=== PATIENT | male | born 1940 | race Caucasian/White ===

== ENCOUNTER 2017-04-28 17:37 | Emergency (ER) | payer OTHER ==
[2017-04-28 20:48] LABS: BASOPHIL % 0.3 % (0-2); PLATELET COUNT 365 x10^3mcL (130-400); RED CELL DISTRIBUTION WIDTH 12.9 % (11.5-14.5)
[2017-04-28 20:54] LABS: UA SPECIFIC GRAVITY >=1.030 (1.005-1.035); microscopic required? YES; urine erythrocyte 1+ (NEGATIVE)
[2017-04-28 21:18] LABS: CALCIUM 9.3 mg/dL (8.5-10.1); CHLORIDE SERUM 104 mmol/L (98-107); CREATININE SERUM 1.1 mg/dL (0.7-1.3); GLUCOSE SERUM 104 mg/dL (74-106); POTASSIUM SERUM 3.6 mmol/L (3.5-5.1); SODIUM SERUM 137 mmol/L (136-145)
[2017-04-28 21:21] LABS: ALBUMIN 3.4 g/dL (3.4-5.0); ALKALINE PHOSPHATASE 84 U/L (46-116); ALT/SGPT 104 U/L (16-63); AMYLASE 77 U/L (25-115); AST/SGOT 61 U/L (15-37); BILIRUBIN TOTAL 0.28 mg/dL (0.20-1.00); HDL CHOLESTEROL 37 mg/dL (40-60); LIPASE 215 IU/L (73-393); T4(THYROXINE) 8.9 ug/dL (4.7-13.3); TOTAL PROTEIN, SERUM 7.8 g/dL (6.4-8.2)
[2017-04-28 21:22] LABS: CHOLESTEROL 134 mg/dL (<200)
[2017-04-28 22:35] VITALS: BP 128/79
[2017-04-28 22:58] LABS: AMPHETAMINE QUAL UR NONE DETECTED (NEG <=1000)
== END 2017-04-28 22:35 | disposition home or self-care (01) ==
LOC: ED 17:37
PROVIDERS: Emergency Medicine
DX: F41.9 Anxiety disorder, unspecified (principal); I10 Essential (primary) hypertension
CPT/HCPCS: 36415; 83880; G0480

== ENCOUNTER 2019-01-27 17:55 | Emergency (ER) | payer OTHER ==
[~2019-01-27] VITALS: Ht 170.2 cm; Wt 88.6 kg
[2019-01-27 18:21] VITALS: Ht 170.2 cm; Wt 88.6 kg
[2019-01-27 19:22] VITALS: BP 146/97
== END 2019-01-27 19:22 | disposition home or self-care (01) ==
LOC: ED 17:55
DX: S81.852A Open bite, left lower leg, initial encounter (principal); I10 Essential (primary) hypertension; W54.0XXA Bitten by dog, initial encounter; Y93.89 Activity, other specified; Y92.89 Other specified places as the place of occurrence of the external cause; Y99.8 Other external cause status